=== PATIENT | female | born 1945 | race Caucasian/White ===

== ENCOUNTER → 2017-04-13 | Day surgery (SDC) | payer MEDICARE ==
--- NOTE | 2017-04-02 12:52 | MH ---
cc: DAVID RAMOS DATE OF ADMISSION 04/13/2017 ADMISSION DIAGNOSIS Cataract right eye. HISTORY OF PRESENT ILLNESS This 71-year-old white female is coming through [facility] for the purpose of a lens extraction of the right eye with intraocular lens implant under local anesthesia. She has noted decreasing visual acuity interfering with her daily activities and elected to have the above procedure. Her best corrected visual acuity is 20/40 -1 in the right eye and 20/40 +2 in the left eye in room light. PAST MEDICAL HISTORY The patient has a history of a: 1. 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 2. Denies hypertension or diabetes. PAST SURGICAL HISTORY Includes: 1. Left carotid endarterectomy 2. Heart stent in the right coronary artery 3. Surgery on the big toe tendon MEDICATIONS Include: 1. Ramipril 2. Amlodipine 3. Crestor 4. Tri-Chlor 5. Baby aspirin 6. Multivitamins 7. Calcium with D ALLERGIES She is allergic to PENICILLIN. SOCIAL HISTORY The patient quit smoking 21 years ago, but did smoke two packs per day for 33 years and drinks two glasses of wine at night but is not drinking at the present time. FAMILY HISTORY It is unknown if the patient is adopted. REVIEW OF SYSTEMS HEAD: Patient denies severe headaches, dizziness or recent head injury. EARS: Patient denies hearing loss, ear pain, discharge or ringing in the ears. NOSE: Patient denies nasal discharge, obstruction or frequent colds. MOUTH AND THROAT: Patient denies soreness of the mouth or tongue, bleeding gums, trouble swallowing, changes in voice or sore throat. NECK: Patient denies neck pain or swelling, limitation of neck movement or neck injury. CARDIOPULMONARY SYSTEM: Denies shortness of breath, orthopnea, chronic cough, sputum production, hemoptysis, chest pain, wheezing, or light-headedness. GI SYSTEM: Patient denies poor appetite, nausea, vomiting, abdominal pain, ulcers, or change in bowel habits. SYSTEM: The patient does have a history of hemorrhoids, but denies urinary frequency, dysuria, change in urine color. NERVOUS SYSTEM: Patient had a stroke that she was told about in 2004, but denies convulsions, vertigo, stroke, numbness or weakness. PHYSICAL EXAMINATION VITAL SIGNS: Blood pressure is 136/78 pulse 72, respirations 20. HEAD: Normocephalic, atraumatic. NOSE: Without rhinorrhea. THROAT: Clear. NECK: Supple. CHEST: Clear. HEART: Regular rhythm. ABDOMEN: Without tenderness. EXTREMITIES: Without edema. NEUROLOGIC: Within normal limits. MENTAL STATUS: Within normal limits. EYE EXAMINATION The patient's best corrected visual acuity is 20/40 -1 in the right eye and 20/40 +2 in the left eye in room light. A potential acuity meter reveals potential acuity of 20/20 -3 in the right eye and 20/20 -2 in the left. Visual lee are full to confrontation testing. Extraocular muscle exam reveals full versions with orthophoria at distance and exophoria at near. Pupils are 3.5 mm equal, round, reactive to light without afferent defect. Anterior segment examination reveals nuclear sclerotic and cortical cataract changes greater in the right eye than the left. Intraocular pressure is 17 in the right eye and 20 in the left by applanation tonometry. Dilated fundus exam revealed sharp disk with cup-to-disk ratio 0.2 bilaterally. The macula was clear bilaterally. A posterior vitreous detachment is present bilaterally. IMPRESSION 1. Bilateral cataracts 2. Posterior vitreous detachment both eyes. PLAN Lens extraction of the right eye with intraocular lens implant under local anesthesia through [facility]. The patient has been cleared medically. She has been counseled as to the risks, benefits and alternatives and elected to proceed. I feel that cataract surgery will improve the quality of life and activities of daily living in this patient. MD YAA Hopson/GOLD /11:58 AM /12:36 PM
[~2017-04-13] VITALS: Ht 162.6 cm; Wt 76.5 kg
[~2017-04-13] MED LIST: ACETYLCHOLINE CHL OPHT SOLN 1:100 2 ML VIAL ONE; ALTA5CAP4 PO; AMLO5 PO; ASPI81TA23 PO; CALC-262 PO; CHLORHEXIDINE GLUCONATE 2 % 1 PACK (2 CLOTHS) TOPICAL PRN; CYCLOPENTOLATE HCL 1% OPHT SOLN 2 ML BTL ONE; CYCLOPENTOLATE HCL 1% OPHT SOLN 2 ML BTL RIGHT EYE SCH; DICLOFENAC SOD 0.1% OPHT SOLN 2.5 ML BTL ONE; DICLOFENAC SOD 0.1% OPHT SOLN 2.5 ML BTL RIGHT EYE SCH; EPINEPHrine HCL PF/SF (1:1000) 1 MG/ML AMP I-OCULAR ONE; FENO50TA PO; GATIFLOXACIN 0.5% OPHT SOLN 2.5 ML BTL ONE; GATIFLOXACIN 0.5% OPHT SOLN 2.5 ML BTL RIGHT EYE SCH; HYALURONIDASE/LIDOCAINE/BUPIVACAINE 5 ML SYR RIGHT EYE ONE; LACTATED RINGER'S 1000 ML IV PRN; METOPROLOL TARTRATE 25 MG TAB PO PRN; MULT-65 PO; NAPR1TAB98 PO; NORV5TAB PO; PHENYLEPHRINE HCL 2.5% OPTH SOLN 2 ML BTL ONE; PHENYLEPHRINE HCL 2.5% OPTH SOLN 2 ML BTL RIGHT EYE SCH; PILOCARPINE HCL 2% OPHT SOLN 15 ML BTL ONE; PLAV75TA PO; POVIDONE IODINE 5% (ANTISEPSIS KIT) 4 APPLICATIONS EACH NARE PRN; PROPARACAINE HCL 0.5% OPHT SOLN 15 ML BTL ONE; PROPARACAINE HCL 0.5% OPHT SOLN 15 ML BTL RIGHT EYE ONE; PROPOFOL 200 MG/20 ML AMP ONE; ROSU40 PO; SODIUM CHLORID 0.9% 500 ML INJ 500 ML ONE; TOBRAMYCIN/DEXAMETHASONE OPTH OINT 3.5 GM TUBE ONE; TROPICAMIDE 1% OPHT SOLN 15 ML BTL ONE; TROPICAMIDE 1% OPHT SOLN 15 ML BTL RIGHT EYE SCH; VISCOAT OPHT IRRIG SOLN 0.75 ML SYRINGE ONE
[2017-04-13 06:42] VITALS: PULSE 79
[2017-04-13] MEDS: GATIFLOXACIN 0.5% OPHT SOLN 2.5 ML BTL RIGHT EYE SCH ×7 (06:43→06:58)
[2017-04-13] MEDS: CYCLOPENTOLATE HCL 1% OPHT SOLN 2 ML BTL RIGHT EYE SCH ×7 (06:43→06:58)
[2017-04-13] MEDS: DICLOFENAC SOD 0.1% OPHT SOLN 2.5 ML BTL RIGHT EYE SCH ×7 (06:43→06:58)
[2017-04-13] MEDS: PROPARACAINE HCL 0.5% OPHT SOLN 15 ML BTL RIGHT EYE ONE (06:43)
[2017-04-13] MEDS: PHENYLEPHRINE HCL 2.5% OPTH SOLN 2 ML BTL RIGHT EYE SCH ×7 (06:43→06:58)
[2017-04-13] MEDS: TROPICAMIDE 1% OPHT SOLN 15 ML BTL RIGHT EYE SCH ×7 (06:43→06:58)
[2017-04-13 07:05] VITALS: PULSE 79
[2017-04-13 07:15] VITALS: PULSE 99
[2017-04-13 08:15] VITALS: TEMP 97.5
[2017-04-13 08:40] VITALS: BP 136/61; PULSE 77; RESP 16; O2SAT 98
--- NOTE | 2017-04-14 13:10 | MP ---
cc: DAVID MILES DATE OF SURGERY: April 13, 2017 PREOPERATIVE DIAGNOSIS: Cataract right eye. POSTOPERATIVE DIAGNOSIS: Cataract right eye. OPERATION: Extracapsular cataract extraction with posterior chamber intraocular lens implant by phacoemulsification, right eye. SURGEON: David Miles M.D. ANESTHESIA: Local. COMPLICATIONS: None. INDICATIONS: See history and physical previously dictated. OPERATIVE PROCEDURE: The patient had adequate retrobulbar and eyelid blocks administered in the holding area and was brought to the operating room. The right eye was prepped and draped in the usual sterile ophthalmic manner. A lid speculum was inserted in the right eye. A 4-0 silk bridle suture was placed through the conjunctiva near the superior rectus muscle and it was tagged to the drape. A fornix-based conjunctival flap was prepared spanning approximately 5 mm in width. Hemostasis was obtained with wet-field cautery. A 3.5 mm groove was made 1 mm from the limbus and dissected up to the limbus in the form of a scleral pocket incision. A stab incision was then made at the 2 o'clock position. Viscoelastic was injected into the anterior chamber. The anterior chamber was entered with a 2.75 mm keratome through the scleral pocket incision. A 360 degree cotinuous curvilinear capsulorrhexis was then performed. Hydrodissection was utilized to divide the nucleus into inner and outer components and to separate the cortex from the capsule. Phacoemulsification was then utilized to remove the nucleus. The outer nuclear layer was removed with irrigation and aspiration and short bursts of ultrasound as necessary. The cortex was removed with the irrigation/aspiration handpiece. The posterior capsule was polished with the capsule polisher. Viscoelastic was injected into the capsular bag. The intraocular lens was inspected and found to be in good condition. The lens utilized was an Jorgito, model number SA60AT with a power of +23 diopters. The lens was inserted into the capsular bag. The viscoelastic in the anterior chamber was then removed with the irrigation-aspiration handpiece. Viscoelastic was also removed from beneath the intraocular lens. The anterior chamber was filled with Miochol-E through the stab incision and pressurized. The wound was checked for leaks at this pressure and normalized pressure and there were none. The 4-0 bridle suture was removed. The conjunctival flap was brought down over the wound and secured with cautery. Pilocarpine 2% eye drops were instilled topically. The lid speculum was removed. TobraDex ophthalmic ointment was applied. The eye was double patched and shielded. The patient tolerated the procedure well and left the Operating Room in satisfactory condition. MD YAA Hopson/PATITO /8:18 AM /1:04 PM
== END | disposition home or self-care (01) ==
LOC: PHSDC 06:06
PROVIDERS: ATTEND Ophthalmology
DX: H26.9 Unspecified cataract (principal); H43.813 Vitreous degeneration, bilateral; Z86.73 Personal history of transient ischemic attack (TIA), and cerebral infarction without residual deficits
CPT/HCPCS: 00142; 66984; J0171; J7040; V2632

== ENCOUNTER → 2017-05-25 | Day surgery (SDC) | payer MEDICARE ==
[~2017-05-25] VITALS: Ht 162.6 cm; Wt 78.0 kg
[~2017-05-25] MED LIST changes: -CYCLOPENTOLATE HCL 1% OPHT SOLN 2 ML BTL ONE; -CYCLOPENTOLATE HCL 1% OPHT SOLN 2 ML BTL RIGHT EYE SCH; -DICLOFENAC SOD 0.1% OPHT SOLN 2.5 ML BTL ONE; -DICLOFENAC SOD 0.1% OPHT SOLN 2.5 ML BTL RIGHT EYE SCH; -GATIFLOXACIN 0.5% OPHT SOLN 2.5 ML BTL ONE; -GATIFLOXACIN 0.5% OPHT SOLN 2.5 ML BTL RIGHT EYE SCH; +HYALURONIDASE/LIDOCAINE/BUPIVACAINE 5 ML SYR LEFT EYE ONE; +HYALURONIDASE/LIDOCAINE/BUPIVACAINE 5 ML SYR ONE; -HYALURONIDASE/LIDOCAINE/BUPIVACAINE 5 ML SYR RIGHT EYE ONE; -NORV5TAB PO; -PHENYLEPHRINE HCL 2.5% OPTH SOLN 2 ML BTL ONE; -PHENYLEPHRINE HCL 2.5% OPTH SOLN 2 ML BTL RIGHT EYE SCH; -PLAV75TA PO; +PROPARACAINE HCL 0.5% OPHT SOLN 15 ML BTL LEFT EYE ONE; -PROPARACAINE HCL 0.5% OPHT SOLN 15 ML BTL ONE; -PROPARACAINE HCL 0.5% OPHT SOLN 15 ML BTL RIGHT EYE ONE; -SODIUM CHLORID 0.9% 500 ML INJ 500 ML ONE; +SODIUM CHLORID 0.9% 500 ML IV PRN; +TETRACAINE 0.5% OPTH SOLN 4 ML BTL ONE; -TROPICAMIDE 1% OPHT SOLN 15 ML BTL ONE; -TROPICAMIDE 1% OPHT SOLN 15 ML BTL RIGHT EYE SCH
[2017-05-25 08:34] VITALS: PULSE 75
[2017-05-25] MEDS: DICLOFENAC SOD 0.1% OPHT SOLN 2.5 ML BTL LEFT EYE SCH ×4 (08:36→08:45)
[2017-05-25] MEDS: GATIFLOXACIN 0.5% OPHT SOLN 2.5 ML BTL LEFT EYE SCH ×4 (08:36→08:45)
[2017-05-25] MEDS: TROPICAMIDE 1% OPHT SOLN 15 ML BTL LEFT EYE SCH ×4 (08:36→08:45)
[2017-05-25] MEDS: CYCLOPENTOLATE HCL 1% OPHT SOLN 2 ML BTL LEFT EYE SCH ×4 (08:36→08:45)
[2017-05-25] MEDS: PHENYLEPHRINE HCL 2.5% OPTH SOLN 2 ML BTL LEFT EYE SCH ×4 (08:36→08:45)
[2017-05-25 09:37] VITALS: PULSE 75
--- NOTE | 2017-05-25 11:30 | MP ---
cc: Seth Miles MD DATE OF OPERATION: 05/25/2017 PREOPERATIVE DIAGNOSIS: Cataract left eye. POSTOPERATIVE DIAGNOSIS: Cataract left eye. OPERATION: Extracapsular cataract extraction with posterior chamber intraocular lens implant by phacoemulsification, left eye. SURGEON: Seth Miles M.D. ANESTHESIA: Local. COMPLICATIONS: None. INDICATIONS: See history and physical previously dictated. OPERATIVE PROCEDURE: The patient had adequate retrobulbar and eyelid blocks administered in the holding area and was brought to the operating room. The left eye was prepped and draped in the usual sterile ophthalmic manner. A lid speculum was inserted in the left eye. A 4-0 silk bridle suture was placed through the conjunctiva near the superior rectus muscle and it was tagged to the drape. A fornix-based conjunctival flap was prepared spanning approximately 5 mm in width. Hemostasis was obtained with wet-field cautery. A 3.5 mm groove was made 1 mm from the limbus and dissected up to the limbus in the form of a scleral pocket incision. A stab incision was then made at the 2 o'clock position. Viscoelastic was injected into the anterior chamber. The anterior chamber was entered with a 2.75 mm keratome through the scleral pocket incision. A 360 degree continuous curvilinear capsulorrhexis was then performed. Hydrodissection was utilized to divide the nucleus into inner and outer components and to separate the cortex from the capsule. Phacoemulsification was then utilized to remove the nucleus. The outer nuclear layer was removed with irrigation and aspiration and short bursts of ultrasound as necessary. The cortex was removed with the irrigation/aspiration handpiece. The posterior capsule was polished with the capsule polisher. Viscoelastic was injected into the capsular bag. The intraocular lens was inspected and found to be in good condition. The lens utilized was a Jorgito, model number SA60AT with a power of +22.5 Diopters. The lens was inserted into the capsular bag. The viscoelastic in the anterior chamber was then removed with the irrigation-aspiration handpiece. Viscoelastic was also removed from beneath the intraocular lens. The anterior chamber was filled with Miochol-E through the stab incision and pressurized. The wound was checked for leaks at this pressure and normalized pressure and there were none. The 4-0 bridle suture was removed. The conjunctival flap was brought down over the wound and secured with cautery. Pilocarpine 2% eye drops were instilled topically. The lid speculum was removed. TobraDex ophthalmic ointment was applied. The eye was double patched and shielded. The patient tolerated the procedure well and left the Operating Room in satisfactory condition. MD YAA Hopson/DARIUS , 11:25 AM , 11:28 AM
[2017-05-25 11:55] VITALS: BP 115/55; PULSE 78; RESP 20; TEMP 98.1; O2SAT 96
== END | disposition home or self-care (01) ==
LOC: PHSDC 07:51
PROVIDERS: ATTEND Ophthalmology
DX: H26.9 Unspecified cataract (principal)
CPT/HCPCS: 00142; 66984; J0171; J7040; V2632